=== PATIENT | female | born 1960 ===

== ENCOUNTER → 2016-07-02 | Outpatient (CLI) | payer SELFPAY ==
--- NOTE | 2016-07-02 15:28 | Diagnostic Imaging Report ---
INDICATION: Shoulder pain. FINDINGS: Four views of the left shoulder show no fracture, dislocation, or other acute abnormalities. There is a small calcification near the rotator cuff tendon insertion. This could be due to calcific tendinosis. IMPRESSION: Probable calcific tendinosis of the left rotator cuff near the humeral insertion. Dictated by: Dictated on workstation # [id number]
== END ==
LOC: RAD 14:57
PROVIDERS: ATTEND Physician Assistant Surgical
DX: M25.512 Pain in left shoulder (principal)
CPT/HCPCS: 73030

== ENCOUNTER 2016-07-07 15:08 | Outpatient (RCR) | payer SELFPAY ==
--- NOTE | 2016-07-11 16:01 | PT/OT/ST INITIAL EVALUATION ---
Department of Health and Human Services Form Approved [facility] Care Financing Administration OMB No. [id number] PLAN OF CARE/ASSESSMENT FOR OUTPATIENT REHABILITATION (Complete for Initial Claims Only) 1. PATIENT'S NAME Sue Zavala 2. ACC # [id number] 3. HICN 4. PROVIDER NO. [id number] 5. TYPE: PT 6. PRIOR HOSPITALIZATION 7. PRIMARY DX Left shoulder pain 8. SECONDARY DX Limited range of motion and strength at left shoulder 9. ONSET DATE 06/26/2016 10. REFERRAL DATE 07/02/2016 11. SOC. DATE 07/07/2016 12. TIME OF EVAL 03:00 p.m. 12. REFERRING PHYSICIAN Sue JAUREGUI 13. CHARGES/UNITS Evaluation Therex Vasopneumatic 14. G CODES 15. PRIOR LEVEL OF FUNCTION; PERTINENT HISTORY (Prior therapy results, reason for referral.) S: Reason for referral: The patient was referred to physical therapy by Sue JAUREGUI with a diagnosis of left shoulder pain. The patient reports that she first started noticing pain at her left shoulder when attempting to roll over in bed on 06/26/2016. She notes that she had pain and aching at the outside of her arm and had difficulty raising the arm or rotating the arm. 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 Activity edwards, she walks a mile every day. She rates her overall health as good. Pain level: She currently rates her pain to be 2/10. The patient also has been using ice for pain relief. Diagnostic testing: The patient did undergo x-rays, they were negative. Past medical history: The patient does not report any other significant past medical history. Current medications: The patient has been taking Meloxicam for inflammation. Patient's Goal: The patient's goal for therapy is to move it again without pain. 16. INITIAL ASSESSMENT/SAFETY PRECAUTIONS/MEDICAL COMPLICATIONS (Level of function at start of care. Be specific, use objective measures, list problems.) O: APPEARANCE, OBSERVATION AND GAIT: The patient is a health looking 55-year-old female. She demonstrates slight forward head posture, mildly rounded shoulders. PALPATION: The patient has tenderness to palpation at left anterior shoulder and at left deltoid tuberosity region. RANGE OF MOTION/FLEXIBILITY: Right shoulder active flexion 155 degrees, abduction 142 degrees. Left shoulder active flexion 130 degrees, abduction 128 degrees. Passive range of motion right shoulder flexion 156 degrees, abduction 162 degrees, external rotation 105 degrees, and internal rotation 43 degrees. Passive range of motion left shoulder flexion 160 degrees, abduction 142 degrees, external rotation 60 degrees, and internal rotation 62 degrees. JOINT MOBILITY: The patient did demonstrate mild increase in laxity at left shoulder compared to right, some clunking was noted. STRENGTH: Right shoulder strength was 5/5 manual muscle test all motions and directions. Left shoulder strength flexion 5/5 manual muscle test, abduction 4+/5 manual muscle test, and internal/external rotation were both 5/5 manual muscle test. TODAY'S TREATMENT: Treatment included initial evaluation followed by gentle manual stretching and mobilization. The patient was then instructed on a home exercise program for range of motion and flexibility. The patient was also instructed on light rotator cuff strengthening exercises. Treatment was ended with vasopneumatic cold compression to patient's left shoulder. 17. INITIAL POC: (Specify procedures, modalities, short and group home goals) A: The patient presents with left shoulder pain which is limiting her range of motion and strength. Possible labral tear. PROGNOSIS: The patient will benefit from physical therapy to work on improving range of motion, flexibility, and stabilization of left shoulder. GOALS: 1. The patient to be compliant with home exercise program in 1 week. 2. The patient to demonstrate full passive motion in all directions without pain at left shoulder in 3 weeks. 3. The patient to demonstrate half a muscle grade improvement in left shoulder strength without pain in 6 weeks. 4. The patient to return to normal daily activities using left shoulder without pain in 6 weeks. P: The patient will be seen 2 times a week over the next 6 weeks. Plan on progressing patient's range of motion, flexibility, stabilization, and strength. The patient was instructed on home exercise program. 18. FREQUENCY 19. DURATION 20. FUNCTIONAL LEVEL (End of claim period) 21. PHYSICIAN SIGNATURE ? ON FILE OR ENTER HERE: 22. DATE: I certify the need for these services furnished under this plan of care and if for partial hospitalization. 23. CERTIFICATION FROM THROUGH FORM [id number]
== END 2016-07-14 10:48 | disposition home or self-care (01) ==
LOC: PT 15:08
PROVIDERS: ATTEND Physician Assistant Surgical
DX: M25.512 Pain in left shoulder (principal)